=== PATIENT | male | born 1975 | race Caucasian/White ===

== ENCOUNTER 2018-07-08 23:37 | Emergency (ER) | payer OTHER ==
[~2018-07-08] VITALS: Ht 175.3 cm; Wt 95.3 kg
[~2018-07-08 23:37] MED LIST: KETO10TA2 PO; ORPH100T PO
[2018-07-09] MEDS ORDERED: MECLIZINE HCL25 MG PO (03:59)
== END 2018-07-09 04:11 | disposition home or self-care (01) ==
LOC: ER 23:37
DX: R42 Dizziness and giddiness (principal)

== ENCOUNTER 2019-01-15 05:15 | Day surgery (SDC) | payer OTHER ==
[~2019-01-15 05:15] MED LIST changes: +MECLIZINE HCL25 MG PO
[2019-01-15] MEDS ORDERED: NEURONTIN300 MG PO (09:22)
[2019-01-15] MEDS ORDERED: MIRALAX17 GM PO (09:22)
[2019-01-15] MEDS ORDERED: TRAMADOL HCL50 MG PO (09:22)
[2019-01-15] MEDS ORDERED: ZOFRAN ODT4 MG PO (09:22)
[2019-01-15] MEDS ORDERED: TYLENOL EXTRA500 MG PO (09:27)
== END 2019-01-15 11:20 | disposition home or self-care (01) ==
LOC: CIR.AMB 05:15
DX: K40.90 Unilateral inguinal hernia, without obstruction or gangrene, not specified as recurrent (principal); K42.9 Umbilical hernia without obstruction or gangrene